=== PATIENT | female | born 1960 | race Caucasian/White ===

== ENCOUNTER 2021-11-23 14:31 | Emergency (ER) | payer SELFPAY ==
[2021-11-23] MEDS ORDERED: ONDANSETRON 4 MG/2 ML VIAL ONE ×2 (14:56→23:18)
[2021-11-23] MEDS ORDERED: FOLIC ACID 1 MG, MULTIVITAMINS INJ 10 ML, THIAMINE HCL 100 MG in NA CHLORIDE 0.9% 1,000 ML IV ONE (15:00)
[2021-11-23 15:14] LABS: Hematocrit 50.6 % (36.0-45.0); Lymphocytes % 63.6 % (15.3-44.8); MPV 7.4 fL (7.6-11.3); RBC Red Blood Cell Count 5.18 M/uL (3.86-4.86)
[2021-11-23 15:16] LABS: Protime INR 0.9
[2021-11-23] MEDS ORDERED: LORazepam 2 MG/ML VIAL ONE (15:21)
[2021-11-23 15:36] LABS: ALT/SGPT 28 U/L (12-78); AST/SGOT 29 U/L (15-37); Albumin 4.2 g/dL (3.4-5.0); Alkaline Phosphatase 128 U/L (45-117); BUN Blood Urea Nitrogen 13 mg/dL (7-18); Bicarbonate 22 mmol/L (21-32); Bilirubin Direct 0.1 mg/dL (0-0.2); Bilirubin Total 0.3 mg/dL (0.2-1.0); Glomerular Filtration Rate 78 ml/min (=/>90); Glucose Level 93 mg/dL (74-106); Potassium 3.3 mmol/L (3.5-5.1); Protein, Total 8.8 g/dL (6.4-8.2); Sodium Level 142 mmol/L (136-145)
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
[2021-11-23 17:43] LABS: Platelet Estimate ADEQ
[2021-11-23 17:44] LABS: Anisocytosis 1+; Blood Morphology Comment NOTED (NOT SEEN); Poikilocytosis 1+
[2021-11-23] MEDS ORDERED: TRAMADOL HCL 50 MG TAB ONE (18:47)
[2021-11-23 19:03] LABS: Urine Blood Negative (Negative); Urine Glucose Negative (Negative); Urine Protein Negative (Negative)
[2021-11-23 19:17] LABS: Barbiturates NEGATIVE (NEGATIVE); Benzodiazepines NEGATIVE (NEGATIVE); Cocaine NEGATIVE (NEGATIVE); METHAMPHETAM NEGATIVE (NEGATIVE); Methadone NEGATIVE (NEGATIVE); Opiates NEGATIVE (NEGATIVE); Phencyclidine NEGATIVE (NEGATIVE); THC Cannibis NEGATIVE (NEGATIVE)
[2021-11-23 19:30] LABS: Urine Bacteria >50 /HPF (<20); Urine RBC <5 /HPF (NONE SEEN)
[2021-11-23] MEDS ORDERED: LIDOCAINE 1% MPF 2 ML AMPULE ONE (23:18)
[2021-11-23] MEDS ORDERED: AZITHROMYCIN 250 MG TAB ONE (23:18)
[2021-11-23] MEDS ORDERED: CEFTRIAXONE 500 MG/VIAL ONE (23:18)
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
[2021-11-24 01:08] VITALS: O2SAT 100
[2021-11-24 01:11] VITALS: TEMP 97.7
[2021-11-24 01:16] VITALS: BP 134/74
--- NOTE | 2021-11-24 13:35 | EKG ---
Test Date: 2021-11-23 Test Time: 14:59:22 Inventory Control Clerk: CORBY MEASUREMENT RESULTS: Intervals: Rate: 82 WV: 150 QRSD: 88 QT: 408 QTc: 476 Needles: P: 72 WV: 150 QRS: 30 T: 66 INTERPRETIVE STATEMENTS: Normal sinus rhythm Low voltage QRS Cannot rule out Anterior infarct, age undetermined Abnormal ECG No previous ECG available for comparison Electronically Signed On 11-24-21 13:33:51 CDT by Geovanny Cassidy
== END 2021-11-23 23:51 | disposition home or self-care (01) ==
LOC: ER 14:31
DX: F10.229 Alcohol dependence with intoxication, unspecified (principal); N39.0 Urinary tract infection, site not specified; T76.21XA Adult sexual abuse, suspected, initial encounter
CPT/HCPCS: 36415; 70450; 71260; 72125; 74177; 80048; 80076; 80307; 80320; 80329; 81003; 81015; 85025; 85610; 85730; 87077; 87086; 87088; 87186; 93005; 96365; 96366; 96372; 96375; 99284; J0696; J2405; J3411; J7030; Q9967